=== PATIENT | female | born 1955 | race Caucasian/White ===

== ENCOUNTER → 2018-07-17 | Outpatient (CLI) | payer OTHER | LOC: BRMIMAGING 16:48 | PROVIDERS: ATTEND Nurse Practitioner | DX: J45.909 Unspecified asthma, uncomplicated (principal); Z98.1 Arthrodesis status | CPT/HCPCS: 71046-PO ==

== ENCOUNTER → 2018-08-06 | Outpatient (CLI) | payer OTHER | LOC: CIMAGING 11:12 | PROVIDERS: ATTEND Emergency Medicine | DX: J01.40 Acute pansinusitis, unspecified (principal) | CPT/HCPCS: 70450-PO ==